=== PATIENT | female | born 1955 | race African-American/Black ===

== ENCOUNTER → 2017-06-16 | Outpatient (CLI) | payer BC ==
--- NOTE | 2017-06-16 14:08 | RADIOLOGY REPORT (SQ) ---
EXAM DESCRIPTION: VENOUS BILATERAL LOWER COMPLETED DATE/TIME: 06/16/2017 1:59 pm REASON FOR STUDY: R22.43 R22.43 LOCALIZED SWELLING, MASS AND LUMP, LOWER LIMB, BILATE COMPARISON: None. TECHNIQUE: Dynamic and static rodas scale and color images acquired of both lower extremity venous sy stems. Selected spectral images acquired with additional compression and augmentation maneuvers. Imag es stored on PACS. LIMITATIONS: None. FINDINGS: RIGHT LEG COMMON FEMORAL AND FEMORAL: Normal phasicity, compression and augmentation. No visualized echogenic m aterial on rodas scale. No defects on color images. POPLITEAL: Normal compression and augmentation. No visualized echogenic material on rodas scale. No de fects on color images. CALF VESSELS: Normal compression and augmentation. No visualized echogenic material on rodas scale. No defects on color image. GSV AND SSV: Normal compression. No visualized echogenic material on rodas scale. No defects on color images. ANY DEEP VENOUS INSUFFICIENCY: Not evaluated. ANY EVIDENCE OF POPLITEAL CYST: No. OTHER: No other significant finding. LEFT LEG COMMON FEMORAL AND FEMORAL: Normal phasicity, compression and augmentation. No visualized echogenic m aterial on rodas scale. No defects on color images. POPLITEAL: Normal compression and augmentation. No visualized echogenic material on rodas scale. No de fects on color images. CALF VESSELS: Normal compression and augmentation. No visualized echogenic material on rodas scale. No defects on color images. GSV AND SSV: Normal compression. No visualized echogenic material on rodas scale. No defects on color images. ANY DEEP VENOUS INSUFFICIENCY: Not evaluated. ANY EVIDENCE POPLITEAL CYST: No. OTHER: No other significant finding. IMPRESSION: NO EVIDENCE DVT OR SVT IN EITHER LEG. TECHNICAL DOCUMENTATION: JOB ID: [id number] [employer]- All Rights Reserved
== END ==
LOC: SP 13:09
PROVIDERS: ATTEND Internal Medicine
DX: R22.43 Localized swelling, mass and lump, lower limb, bilateral (principal)
CPT/HCPCS: 93970